=== PATIENT | female | born 1960 | race Caucasian/White ===

== ENCOUNTER 2017-05-27 01:56 | Inpatient (IN) | payer OTHER ==
[~2017-05-27] VITALS: Ht 170.2 cm; Wt 72.6 kg
[~2017-05-27 01:56] MED LIST: LIALDA1.2 G1 PO; LIPITOR10 M1 PO; LORAZEPAM; TIROSINT75 MC1
[2017-05-27] MEDS ORDERED: OSPHENA60 M1 PO (11:02)
[2017-05-27] MEDS ORDERED: ATIVAN1 M1 PO (14:36)
--- NOTE | 2017-05-27 14:45 | Admission Core Measures ---
Admission Meds I reviewed the following Meds: Current Medications Sig/Darling Start time Last Medication Dose Stop Time Status Admin Atorvastatin Calcium 10 MG 1700 05/28 1700 AC (Lipitor) Cefazolin Sodium 2,000 MG ONCE 05/27 0000 NR (Kefzol-Ancef Inj) 05/27 2359 Levothyroxine Sodium 0.075 MG DAILY AC 05/28 0700 AC (Synthroid) Lorazepam 1 MG BID PRN 05/27 1445 AC (Ativan) Mesalamine 1,600 MG TID 05/27 1600 AC (Delzicol) Ropivacaine 500 ML ONCE ONE 05/27 1200 AC (NAROPIN) 05/29 0539 ON-Q Ball 1 BAG Acute Coronary Syndrome Inclusion Criteria ACS Diagnosis No Inpatient Core Measures LDL Reminder: If No, please order W/I first 24hr of stay Congestive Heart Failure Inclusion Criteria CHF Diagnosis No Cerebrovascular accident Inclusion Criteria CVA/TIA Diagnosis No Inpatient Core Measures Bedside Swallow Eval Reminder: If BSE failed, place ST order Antithrombotic Reminder: Order Antithrombotic Medication by end of day 2 Antithrombotic Reminder: Document Reason Antithrombotic Not ordered by end of day 2 AFIB/Flutter Reminder: If Present, add to problem list AFIB/Flutter Reminder: Order Anticoag Medication for pts with AFIB/Flutter Atherosclerosis Reminder: If Present, add to problem list LDL Reminder: If No, please order W/I first 24hr of stay PT Order Reminder: If No, please order Venous thromboembolism Inpatient Core Measures VTE Risk Factors: Age > 40, Surgery No [facility] VTE prophylaxis d/t No contraindications No VTE Pharm Prophylaxis d/t No contraindications Inclusion Criteria - Per Current guidelines, there needs to be overlap - treatment for the first 5 days of Warfarin therapy. - Parenteral Anticoagulation (IV or SC) needs to be - given along with Warfarin therapy. VTE Diagnosis No VTE Type NONE VTE Confirmed by (Test) NONE Problem List As ranked by this Provider includes Assessment & Plan 1. S/P total knee replacement HOME MEDS Home Med List Atorvastatin Calcium (Lipitor) 10 MG TABLET 1 TAB PO DAILY CHOLESTEROL ( Reported) Lorazepam (Ativan) 1 MG TABLET 1 TAB PO BID PRN anxiety (Reported) Mesalamine (Lialda) 1.2 GRAM TABLET.DR 4 TAB PO DAILY ILEITIS (Reported) Ospemifene (Osphena) 60 MG TABLET 1 PO D unknown (Reported) Discontinued Medications Tramadol HCl (Ultram) 50 MG TABLET 1 TAB PO BIDP PRN pain (Reported) Discontinued reason: Changed to different med
--- NOTE | 2017-05-27 14:47 | Patient Discharge Instructions ---
Discharge Instructions General Discharge Information You were seen/treated for: knee pain You had these procedures: total knee replacement Watch for these problems: temp>101, increased redness or drainage of wound Do not soak the wound: Yes Other wound care: Keep incision clean and dry, may shower, no bathing Diet Recommended Diet: Regular Activity Activity Limited to: Weight bear as tolerated Acute Coronary Syndrome Inclusion Criteria At DC or during hospital stay patient has or had the following: Discharge Core Measures Meds if any: Prescribed or Continued at Discharge Meds if any: NOT Prescribed or Continued at Discharge Congestive Heart Failure Inclusion Criteria At DC or during hospital stay patient has or had the following: Discharge Core Measures Meds if any: Prescribed or Continued at Discharge Meds if any: NOT Prescribed or Continued at Discharge Cerebrovascular accident Inclusion Criteria At DC or during hospital stay patient has or had the following: CVA/TIA Diagnosis No Discharge Core Measures Meds if any: Prescribed or Continued at Discharge Meds if any: NOT Prescribed or Continued at Discharge Venous thromboembolism Discharge Core Measures - Per Current guidelines, there needs to be overlap - treatment for the first 5 days of Warfarin therapy. - If discharged on Warfarin prior to 5 days of - overlap therapy, the patient will need to be - assessed for post discharge needs including - *Post discharge parental anticoagulation - *Warfarin and/or parental anticoagulation education - *Follow up date to check INR post discharge Meds if any: Prescribed or Continued at Discharge Note: Overlap Therapy is Warfarin and Anticoagulant Meds if any: NOT Prescribed or Continued at Discharge
[2017-05-27] MEDS ORDERED: COLACE100 M1 PO (14:50)
[2017-05-27] MEDS ORDERED: MIRALAX17 G1 PO (14:50)
[2017-05-27] MEDS ORDERED: ASPIRIN EC325 M2 PO (14:50)
[2017-05-27] MEDS ORDERED: MS CONTIN15 M2 PO (14:50)
[2017-05-27] MEDS ORDERED: DILAUDID4 M1 PO (14:50)
--- NOTE | 2017-05-27 14:52 | Surgical Discharge Summary ---
Visit Information Visit Dates Admission Date: 05/27/17 Discharge Date: 05/29/17 History of Present Illness Chief Complaint: See H and P Surgical History Pertinent Surgical History: unobtainable Review of Systems: See H and P Hospital Course Course Attending Physician: CHA MACHADO MD Primary Care Physician: EVENS LIMA MD Hospital Course: Pt underwent a total knee replacement by Dr Machado. Was brought to the recovery room in stable condition. Over the course of her stay, her pain was controlled, she was able to void, she tolerated her diet, and she worked with PT. She was cleared by PT to be discharged home with services. Allergies: Coded Allergies: erythromycin base (UNKNOWN 05/24/17) EES PER ANTIBIOTIC ORDER SHEET OF 05/24/17 (SJS) oxycodone (UNKNOWN 05/24/17) PER ANTIBIOTIC ORDER SHEET OF 05/24/17 ([facility]JS) Significant Procedures: R TKR See operative report Disposition Summary Disposition Principal Diagnosis: DJD/OA Additional Diagnosis: s/p r tkr Discharge Disposition: home health services Discharge Instructions General Discharge Information Code Status: Full Code Patient's Diet: regular Patient's Activity: wbat Follow-Up Instructions/Appts: Keep scheduled appointment in 6 weeks. Call sooner if needed. Medications at Discharge Discharge Medications: Stop taking the following medications: Tramadol HCl (Ultram) 50 MG TABLET ORAL 2 x Daily as needed as needed for pain Continue taking these medications: Levothyroxine Sodium (Tirosint) 75 MCG CAPSULE DAILY Atorvastatin Calcium (Lipitor) 10 MG TABLET 1 Tablet ORAL DAILY Mesalamine (Lialda) 1.2 GRAM TABLET.DR 4 Tablet ORAL DAILY Ospemifene (Osphena) 60 MG TABLET 1 ORAL Every Day Lorazepam (Ativan) 1 MG TABLET 1 Tablet ORAL TWICE DAILY as needed for anxiety Start taking the following new medications: Docusate Sodium (Colace) 100 MG CAPSULE 1 Capsule ORAL TWICE DAILY Qty = 14 No Refills Polyethylene Glycol 3350 (Miralax) 17 GRAM POWD.PACK 1 Packet ORAL DAILY Qty = 7 No Refills Instructions: dissolve in water Hydromorphone HCl (Dilaudid) 4 MG TABLET 1-2 Tablet ORAL EVERY 4 HOURS NEEDED Qty = 36 No Refills Morphine Sulfate (Ms Contin) 15 MG TABLET.ER 1 Tablet ORAL TWICE DAILY Qty = 6 No Refills Aspirin (Ecotrin*) 325 MG TABLET.DR 1 Tablet ORAL TWICE DAILY Qty = 60 No Refills
--- NOTE | 2017-05-27 15:28 | Operative Report ---
Operative/Inv Procedure Report Surgery Date: 05/27/17 Name of Procedure: Right total knee replacement Pre-Operative Diagnosis: Primary right knee DJD Post-Operative Diagnosis: Same Estimated Blood Loss: 50ml to 100ml Surgeon/Linen Room Supervisor: JEANNETTE FAJARDO,CHA Kapoor Anesthesia: block Operative/Procedure Note Note: Description of Procedure: The patient was taken to the operating room and positively identified. After induction of spinal anesthesia and administration of appropriate pre-operative antibiotics, the patient was positioned supine on the operating room table and all bony prominences were well padded. A well-padded pneumatic tourniquet was placed on the right upper thigh. After performing a surgical timeout, the right lower extremity was prepped and draped in the usual sterile fashion. After exsanguination with Esmarch the tourniquet was inflated to 250mm of mercury. A standard medial parapatellar approach was made to the knee. This was carried down through skin and subcutaneous tissue to the level of the fascia. Meticulous hemostasis was maintained with Bovie electrocautery. The extensor mechanism and patellar retinaculum were opened sharply and the patella was everted. The infrapatellar fat was resected in order to improve exposure. Osteophytes were trimmed from the patella and femoral condyles and the patella was re-everted and tucked laterally. A medial release was performed and the cruciate ligaments were resected. The tibia was then subluxed anteriorly. Utilizing the appropriate extra-medullary guide, the proximal tibia was trimmed perpendicular to the long axis of the tibial shaft. Attention was then turned to the femur. After opening the medullary canal, the distal femoral cut was made in 6 degrees of valgus utilizing the appropriate intra-medullary guide. The extension gap was checked and found to be appropriate. The femur was then sized and the remainder of the femoral cuts were made with a size #4 4-in-1 femoral cutting guide. The flexion gap was checked and found to be symmetric and appropriate. The knee was then trialed with a size #4 femoral component, a size #4 tibial component and a size 11 mm polyethylene insert. The patella was not resurfaced due to its excellent preoperative condition. This yielded excellent range of motion, stability and patellar tracking. All trial components were removed and the knee was copiously irrigated with sterile saline. All components were cemented into place with Vator.TV Simplex cement. All the components were of the [place] [employer] knee system of the above stated sizes. The knee was again irrigated after cementation. The extensor mechanism and patellar retinaculum were repaired using interrupted #1 vicryl suture. The skin was re-approximated with 2-0 vicryl and closed with brionna. A sterile dressing was applied, the tourniquet was deflated, the patient was awakened and taken to the recovery room in satisfactory condition.
--- NOTE | 2017-05-27 15:28 | PN- Orthopedic ---
Subjective Subjective: Post op check Awake and alert post op Pain well controlled at this time Denies nausea although had abimbola in the PACU Has not ambulated or voided yet. Objective Vital Signs and I&Os Intake & Output 05/27 0805/27 0000 05/26 1600 05/26 0805/26 0000 Intake Total Output Total Balance Patient 160 lb Weight Physical Exam: VSS, afebrile General: alert and oriented times three Chest: clear anteriorly bilaterally, RRR Abd; soft, good bs Ext: warm, no edema, positive sensate, no calf tenderness, good 5/5 RAVI BLE Wound: dressed, dry, ice pack in place, on Q in place Assessment/Plan Assessment/Plan 56 yo female s/p R TKR PT - WBAT fu void pain mgmt - pt states she is very sensitive to narcotics home meds at discharge dilaudid 4-8 mg and ms contin [address] León Will trial her at 2-4 mg dilaudid po prn tonight labs in am Core Measures/Miscellaneous Venous Thromboembolism VTE Risk Factors: Age > 40, Surgery VTE Contraindications: No Contraindications VTE Diagnosis: No VTE Type: NONE VTE Confirmed by (Test): NONE Beta Adele Is Beta Adele a Home Med? No Antibiotics Is Patient on Antibiotics? Yes If Yes: prophylaxis
[2017-05-27 16:05] VITALS: BP 132/62
--- NOTE | 2017-05-27 16:05 | NUR ---
NURSING NOTE; AT THIS TIME PT ADMITTED TO ROOM 204-02 FROM THE PACU, PT ALERT AND ORIENTEDX3, ON RA, DENIES CP, DENIES SOB, DENIES ANY PAIN OR DISCOMFORT, DSG TO R KNEE C/D/I, ONQ PUMP RUNNING AT 6CM AT 12ML/HR, PT ORIENTED TO ROOM AND CALL KELLEY, SAFETY MAINTAINED, NEEDS WITHIN REACH
[2017-05-27 18:21] VITALS: BP 132/86
[2017-05-27 20:06] VITALS: BP 136/82
[2017-05-27 22:18] VITALS: BP 110/66
[2017-05-28 02:08] VITALS: BP 134/72
--- NOTE | 2017-05-28 07:14 | PN- Orthopedic ---
Subjective Subjective: POD#1 S/P RIGHT TKA NO MAJOR ISSUES OVERNIGHT DENIES CP, SOB, NO N+V WITH DIET Objective Vital Signs and I&Os Vital Signs Date Time Temp Pulse Resp B/P B/P Pulse O2 O2 Flow FiO2 Mean Ox Delivery Rate 05/27 2218 98.2 77 18 110/66 93 Room Air 05/27 2006 98.6 85 18 136/82 94 Room Air 05/27 1821 98.1 77 18 132/86 97 Room Air 05/27 1605 98.1 60 16 132/62 96 Room Air Intake & Output 05/28 0800 05/28 0000 05/27 1600 05/27 0800 05/27 0000 05/26 1600 Intake Total 1700 Output Total 1000 Balance 700 Intake, IV 900 Intake, Oral 800 Output, Urine 1000 Patient 160 lb 160 lb Weight Weight Reported by Patient Measurement Method Physical Exam: CV: RRR LUNGS: CLEAR ABD: SOFT EXT: DRSG DRY DISTAL CMS INTACT Assessment/Plan Assessment/Plan ORTHO STABLE PLAN OOB WITH PT TODAY ASA FOR DVT PROPHYLAXIS WEAN IVF WHEN TAKING ADEQUATE PO HOME DC/ PLANNING Core Measures/Miscellaneous Venous Thromboembolism VTE Risk Factors: Age > 40, Surgery VTE Contraindications: No Contraindications VTE Diagnosis: No VTE Type: NONE VTE Confirmed by (Test): NONE Beta Adele Is Beta Adele a Home Med? No Antibiotics Is Patient on Antibiotics? Yes If Yes: prophylaxis
[2017-05-28 07:27] VITALS: BP 112/72
--- NOTE | 2017-05-28 08:06 | NUR ---
ON Q INCREASED TO 14 ML PER HOUR
[2017-05-28 08:45] LABS: ABSOLUTE BASOPHIL COUNT 0 /CUMM (0.0-0.2); ABSOLUTE EOSINOPHIL COUNT 0 /CUMM (0.0-0.7); ABSOLUTE GRANULOCYTE CT 10.4 /CUMM (1.4-6.5); ABSOLUTE LYMPH COUNT 0.6 /CUMM (1.2-3.4); ABSOLUTE MONOCYTE COUNT 0.8 /CUMM (0.10-0.60); BASOPHIL % 0 % (0.0-2.0); EOSINOPHIL % 0 % (0-5); HEMATOCRIT 35.8 % (37-47); MEAN CORPUSCULAR HGB 29.9 PG (27.0-31.0); MEAN CORPUSCULAR HGB CONC 33.3 G/DL (33.0-37.0); MEAN CORPUSCULAR VOLUME 89.8 FL (81.0-99.0); MEAN PLATELET VOLUME 7.3 FL (7.4-10.4); PLATELET COUNT 291 /CUMM (130-400); RED BLOOD CELL CT 3.98 /CUMM (4.20-5.40); WHITE BLOOD CELL COUNT 11.8 /CUMM (4.8-10.8)
[2017-05-28 09:41] LABS: GRANULOCYTE % 88.5 % (42.2-75.2)
--- NOTE | 2017-05-28 10:18 | NUR ---
NURSING NOTE: PT AMBULATED WITH P.T., C/O NAUSEA DURING THE WALK, CHAVA ALMANZAR CALLED AND MADE AWARE, ZOFRAN ORDERED Q 6 HR. PT STATES NAUSEA BETTER AFTER SITTING IN RECLINER. PT EDUCATED TO CALL RN IF NAUSEA COMES BACK. NEEDS IN REACH.
--- NOTE | 2017-05-28 13:41 | NUR ---
NURSING NOTE: PT REQUESTING MS CONTIN AT THIS TIME, WAS NAUSEOUS EARLIER THIS AM, CHAVA ALMANZAR AWARE. ZOFRAN GIVEN AT THIS TIME PER PT REQUEST, NEEDS IN REACH.
[2017-05-28 13:58] VITALS: BP 114/60
[2017-05-28 21:52] VITALS: BP 140/78
[2017-05-29 06:44] VITALS: BP 110/70
--- NOTE | 2017-05-29 06:59 | PN- Orthopedic ---
Subjective Subjective: POD#2 S/P RIGHT TKA NO MAJOR ISSUES OVERNIGHT NO COMPLAINTS NOW PAIN CONTROLLED WITH PO PAIN MEDS TOLERATING DIET DOING WELL WITH PT Objective Vital Signs and I&Os Vital Signs Date Time Temp Pulse Resp B/P B/P Pulse O2 O2 Flow FiO2 Mean Ox Delivery Rate 05/29 0644 98.7 81 18 110/70 97 Room Air 05/28 2152 98.9 85 18 140/78 97 05/28 1358 98.6 70 18 114/60 97 Room Air 05/28 0727 97.9 73 18 112/72 93 Room Air Intake & Output 05/29 0800 05/29 0000 05/28 1600 05/28 0800 05/28 0000 05/27 1600 Intake Total 900 7566 750 1536 Output Total 450 500 158 565 2693 Balance -736 726 2557 200 700 Intake, IV 800 800 900 Intake, Oral 900 800 800 Number 0 Bowel Movements Output, Urine 450 500 552 825 2112 Patient 160 lb 160 lb Weight Weight Reported by Patient Measurement Method Physical Exam: CV: RRR LUNGS: CLEAR ABD: SOFT, +BS EXT: DRSG CHANGED, WOUND C/D/I NO CALF TENDERNESS DISTAL CMS INTACT BILAT Assessment/Plan Assessment/Plan ORTHO STABLE PLAN D/C TODAY AFTER PT CLEARANCE Core Measures/Miscellaneous Venous Thromboembolism VTE Risk Factors: Age > 40, Surgery VTE Contraindications: No Contraindications VTE Diagnosis: No VTE Type: NONE VTE Confirmed by (Test): NONE Beta Adele Is Beta Adele a Home Med? No Antibiotics Is Patient on Antibiotics? Yes If Yes: prophylaxis
--- NOTE | 2017-05-29 11:43 | NUR ---
PT REPORTED NAUSEA WITH PO PAIN MEDS DEPSITE HAVING MED WITH FOOD. PT CONCERNED ABOUT USING PAIN MEDS AT HOME AND NOT BEING ABLE TO HAVE IV ZOFRAN ADMINISTERED LIKE SHE HAS IN THE HOSPITAL. SURGICAL JENELLE ALEXANDER CONTACTED ABOUT ISSUE- TO SEND PO ZOFRAN TO PHARMACY FOR DISCHARGE. PT TO BE UPDATED. WILL CONT TO MONITOR.
[2017-05-29] MEDS ORDERED: ZOFRAN ODT4 M1 SL (11:51)
[2017-05-29] MEDS ORDERED: ULTRAM50 M1 PO (12:12)
== END 2017-05-29 14:05 | disposition home health service (06) | DRG 470 ==
LOC: SDA 01:56 → ENRESERV 14:26 → ENTRNSPT 15:46 → CMPTRNSPT 16:24 → 2NB 16:28 → ENPENDDIS 05-29 07:17 → 2NB 05-29 14:05
PROVIDERS: Physician Assistant Surgical; ADMIT Orthopaedic Surgery
PROC: 0SRC0J9 Replacement of Right Knee Joint with Synthetic Substitute, Cemented, Open Approach (ICD-10-PCS; principal; 2017-05-27)
PROC: 3E0T3CZ (ICD-10-PCS; 2017-05-27)
DX: M17.11 Unilateral primary osteoarthritis, right knee (principal); E03.8 Other specified hypothyroidism; E78.5 Hyperlipidemia, unspecified; M26.609 Unspecified temporomandibular joint disorder, unspecified side; F41.9 Anxiety disorder, unspecified; Z87.891 Personal history of nicotine dependence
CPT/HCPCS: 2NBSP; 82436; 97110-GO; 97116-GO; 97161-GP; 97530-GO; C1713; J0690; J2405; J2795; J7042